=== PATIENT | female | born 1960 | race Caucasian/White ===

== ENCOUNTER 2017-09-12 07:05 | Outpatient (CLI) | payer OTHER ==
[2017-09-12 12:44] LABS: BASOPHILS % (AUTO) 0.8 %; EOSINOPHILS # (AUTO) 0.3 10^3/uL (0.0-0.7); EOSINOPHILS % (AUTO) 6.3 %; HGB - HEMOGLOBIN 13.9 g/dL (12.0-16.0); LYMPHOCYTES # (AUTO) 1.6 10^3/uL (1.5-3.5); MEAN CORPUSCULAR HEMOGLOBIN 31.2 pg (27.0-31.0); MEAN CORPUSCULAR HGB CONC 33.8 g/dL (32.0-36.0); MEAN CORPUSCULAR VOLUME 92.3 fL (81.0-99.0); MEAN PLATELET VOLUME 9.4 fL (7.9-10.8); MONOCYTES # (AUTO) 0.4 10^3/uL (0.0-1.0); MONOCYTES % (AUTO) 9.6 %; NEUTROPHILS # (AUTO) 1.9 10^3/uL (1.5-6.6); NEUTROPHILS % (AUTO) 44.3 %; PLT - PLATELET COUNT 210 10^3/uL (130-450); RED BLOOD COUNT 4.44 10^6/uL (4.20-5.40); WHITE BLOOD COUNT 4.2 x10^3/uL (4.8-10.8)
[2017-09-12 12:51] LABS: ALBUMIN 4.1 g/dL (3.2-5.5); ALBUMIN/GLOBULIN RATIO 1.6 (1.0-2.2); ALKALINE PHOSPHATASE 55 IU/L (42-121); ALT ALANINE AMINOTRANSFERASE 22 IU/L (10-60); AST ASPARTATE AMINOTRANSFERASE 28 IU/L (10-42); BILIRUBIN,TOTAL 1.4 mg/dL (0.2-1.0); BUN - BLOOD UREA NITROGEN 19 mg/dL (6-20); CALCIUM 8.8 mg/dL (8.5-10.3); CARBON DIOXIDE - CO2 26 mmol/L (21-32); CHLORIDE 107 mmol/L (101-111); CHOL/HDL RATIO 2.4 (<4.4); CHOLESTEROL 176 mg/dL; CREATININE 0.7 mg/dL (0.4-1.0); GFR - MDRD 86 (>89); GLUCOSE 99 mg/dL (70-100); HDL CHOLESTEROL 72 mg/dL; LDL CHOLESTEROL,CALCULATED 94 mg/dL; LDL/HDL RATIO 1.3 (<4.4); SODIUM 139 mmol/L (135-145); TOTAL PROTEIN 6.6 g/dL (6.7-8.2); VLDL CHOLESTEROL 10 mg/dL
== END 2017-09-12 07:06 | disposition home or self-care (01) ==
LOC: LAB.WCP 07:05
PROVIDERS: ATTEND Family Medicine
DX: R03.0 Elevated blood-pressure reading, without diagnosis of hypertension (principal); F41.9 Anxiety disorder, unspecified; F90.0 Attention-deficit hyperactivity disorder, predominantly inattentive type
CPT/HCPCS: 36415; 80053; 80061; 83721; 84443; 85025

== ENCOUNTER 2019-02-27 07:31 | Outpatient (CLI) | payer OTHER ==
[2019-02-27 12:46] LABS: BASOPHILS % (AUTO) 0.8 %; EOSINOPHILS # (AUTO) 0.3 10^3/uL (0.0-0.7); EOSINOPHILS % (AUTO) 5.2 %; HGB - HEMOGLOBIN 13.9 g/dL (12.0-16.0); LYMPHOCYTES # (AUTO) 1.6 10^3/uL (1.5-3.5); LYMPHOCYTES % (AUTO) 31.2 %; MEAN CORPUSCULAR HEMOGLOBIN 30.2 pg (27.0-31.0); MEAN CORPUSCULAR HGB CONC 32.9 g/dL (32.0-36.0); MEAN CORPUSCULAR VOLUME 91.7 fL (81.0-99.0); MEAN PLATELET VOLUME 10.9 fL (7.9-10.8); MONOCYTES # (AUTO) 0.5 10^3/uL (0.0-1.0); MONOCYTES % (AUTO) 8.9 %; NEUTROPHILS # (AUTO) 2.8 10^3/uL (1.5-6.6); NEUTROPHILS % (AUTO) 53.7 %; PLT - PLATELET COUNT 223 10^3/uL (130-450); RED CELL DISTRIBUTION WIDTH 12.6 % (12.0-15.0); WHITE BLOOD COUNT 5.2 x10^3/uL (4.8-10.8)
[2019-02-27 13:36] LABS: ALBUMIN 4.3 g/dL (3.2-5.5); ALBUMIN/GLOBULIN RATIO 1.7 (1.0-2.2); ALKALINE PHOSPHATASE 62 IU/L (42-121); ALT ALANINE AMINOTRANSFERASE 17 IU/L (10-60); AST ASPARTATE AMINOTRANSFERASE 19 IU/L (10-42); BILIRUBIN,TOTAL 0.8 mg/dL (0.2-1.0); BUN - BLOOD UREA NITROGEN 17 mg/dL (6-20); CALCIUM 9.4 mg/dL (8.5-10.3); CARBON DIOXIDE - CO2 27 mmol/L (21-32); CHLORIDE 108 mmol/L (101-111); CHOL/HDL RATIO 3.4 (<4.4); CHOLESTEROL 199 mg/dL; CREATININE 0.7 mg/dL (0.4-1.0); GFR - MDRD 85 (>89); GLUCOSE 99 mg/dL (70-100); HDL CHOLESTEROL 58 mg/dL; LDL CHOLESTEROL,CALCULATED 126 mg/dL; LDL/HDL RATIO 2.2 (<4.4); SODIUM 142 mmol/L (135-145); TOTAL PROTEIN 6.9 g/dL (6.7-8.2); VLDL CHOLESTEROL 15 mg/dL
== END 2019-02-27 23:59 | disposition home or self-care (01) ==
LOC: LAB.WCP 07:31
PROVIDERS: ATTEND Family Medicine
DX: Z00.00 Encounter for general adult medical examination without abnormal findings (principal); Z01.84 Encounter for antibody response examination
CPT/HCPCS: 36415; 80053; 80061; 83721; 84443; 85025; 86735; 86762; 86765

== ENCOUNTER 2020-06-05 08:00 | Outpatient (CLI) | payer OTHER | END 2020-06-05 23:59 | disposition home or self-care (01) | LOC: LAB.N 08:00 | PROVIDERS: ATTEND Physician Assistant Medical | DX: N30.00 Acute cystitis without hematuria (principal) | CPT/HCPCS: 87086 ==

== ENCOUNTER 2020-08-31 17:41 | Outpatient (CLI) | payer OTHER | END 2020-08-31 23:59 | disposition home or self-care (01) | LOC: LAB.N 17:41 | PROVIDERS: ATTEND Physician Assistant Medical | DX: J34.89 Other specified disorders of nose and nasal sinuses (principal); Z20.822 Contact with and (suspected) exposure to COVID-19 ==

== ENCOUNTER 2020-09-19 13:34 | Outpatient (CLI) | payer OTHER ==
--- NOTE | 2020-09-19 14:04 | XRAY Report ---
PROCEDURE: Sinus Hernández View INDICATIONS: SINUSITIS TECHNIQUE: 1 views of the sinuses were acquired. COMPARISON: None FINDINGS: Sinuses: There is complete opacification of the left maxillary sinus. The visualized mastoids also ap pear clear. Bones: No suspicious bony lesions. Nasal septum is midline. IMPRESSION: Left maxillary sinus opacification. Reviewed by: Mal Aviles MD on 09/19/2020 1:02 PM [facility] Approved by: Mal Aviles MD on 09/19/2020 1:02 PM LIZ[facility] Station ID: [id number]
== END 2020-09-19 23:59 | disposition home or self-care (01) ==
LOC: DI.N 13:34
PROVIDERS: ATTEND Family Medicine
DX: J32.9 Chronic sinusitis, unspecified (principal); J34.89 Other specified disorders of nose and nasal sinuses

== ENCOUNTER 2020-11-19 16:26 | Outpatient (CLI) | payer OTHER | END 2020-11-19 16:27 | disposition home or self-care (01) | LOC: COV 16:26 | PROVIDERS: ATTEND Family Medicine | DX: Z20.822 Contact with and (suspected) exposure to COVID-19 (principal) ==

== ENCOUNTER 2020-12-13 08:41 | Outpatient (CLI) | payer OTHER ==
[2020-12-13] MEDS ORDERED: IOVERSOL 320 100 ML VIAL IVP ONE ×2 (08:50→09:48)
[2020-12-13 09:13] LABS: CREATININE 0.8 mg/dL (0.4-1.0)
--- NOTE | 2020-12-13 14:10 | CT Report ---
PROCEDURE: MAXILLOFACIAL W/WO INDICATIONS: SUBMANDIBULAR MASS TECHNIQUE: Scanning is performed of the maxillofacial region, both before and following contrast admi nistration. COMPARISON: Correlation is made with sinus plain films, 09/19/2020. FINDINGS: On precontrast imaging, there is a dense stone involving the expected location of the right submandibular duct that measures 9 mm, as on series 5 image 33. The right submandibular gland is hig hly atrophic and highly fatty replaced. The left submandibular gland is unremarkable. On postcontrast imaging, no significant submandibular masses can be seen. The parotid glands demonstrate an unremarkable, symmetric appearance, without stones or masses. The t hyroid is off of the [id number] of this study. The visualized brain is unremarkable, without masses, abnormal enhancement, or hemorrhage. No significant vascular abnormality is detected. No carotid stenosis can be seen. Cervical spine degenerative changes are seen, with at least moderate disc space narrowing at C4-C5 an d C5-C6. On these images, there is moderate mucosal thickening within the left maxillary sinus. Within the sup erior aspect of the right maxillary sinus, there is a mucous retention cyst seen, with partial opacif ication of a right-sided [place] cell. There is constitutional narrowing of both ostiomeatal complexes, with bilateral [place] cells. The par anasal sinuses are otherwise unremarkable. There is a left-sided ginger bullosa and a trivial right-s ided conchal bullosa. There is minimal rightward nasal septal deviation. IMPRESSION: There is a 9 mm right submandibular gland stone, with an associated atrophic/fatty replaced right sub mandibular gland. The left submandibular gland is unremarkable. Paranasal sinus disease is seen, which is worst within the left maxillary sinus. The ostiomeatal complexes are constitutionally narrowed with bilateral [place] cells. The right ostiom eatal complex is further narrowed by a superomedial mucous retention cyst within the right maxillary sinus. Cervical spine degenerative changes can also be seen. Reviewed by: Ike Osborne MD on 12/13/2020 1:09 PM [facility] Approved by: Ike Osborne MD on 12/13/2020 1:09 PM [facility] Station ID: [id number]
== END 2020-12-13 08:42 | disposition home or self-care (01) ==
LOC: LAB 08:41
PROVIDERS: ATTEND Family Medicine
DX: R22.1 Localized swelling, mass and lump, neck (principal); K11.5 Sialolithiasis; J34.1 Cyst and mucocele of nose and nasal sinus; J34.89 Other specified disorders of nose and nasal sinuses; M47.812 Spondylosis without myelopathy or radiculopathy, cervical region
CPT/HCPCS: 36415; 70488; 82565; Q9967

== ENCOUNTER 2021-01-06 08:00 | Outpatient (CLI) | payer OTHER | END 2021-01-06 23:59 | disposition home or self-care (01) | LOC: LAB.N 08:00 | PROVIDERS: ATTEND Physician Assistant | DX: U07.1 COVID-19 (principal) ==

== ENCOUNTER 2021-02-17 10:54 | Outpatient (CLI) | payer OTHER ==
--- NOTE | 2021-02-17 13:51 | XRAY Report ---
PROCEDURE: Chest 2 View X-Ray INDICATIONS: VIRAL SYNDROME TECHNIQUE: 2 view(s) of the chest. COMPARISON: None. FINDINGS: Surgical changes and devices: None. Lungs and pleura: There is blunting of the costophrenic angles bilaterally. Mediastinum: Mediastinal contours are normal. Heart size is normal. Bones and chest wall: No suspicious bony abnormalities. Soft tissues appear unremarkable. IMPRESSION: Costophrenic angle blunting suggestive of trace effusions versus scarring. No consolidations. Reviewed by: Inna Du MD on 02/17/2021 1:50 PM PST Approved by: Inna Du MD on 02/17/2021 1:50 PM [facility] Station ID: [id number]
== END 2021-02-17 23:59 | disposition home or self-care (01) ==
LOC: DI.N 10:54
PROVIDERS: ATTEND Family Medicine
DX: B34.9 Viral infection, unspecified (principal)
CPT/HCPCS: 87275; 87276

== ENCOUNTER 2021-03-16 08:00 | Outpatient (CLI) | payer OTHER ==
[2021-03-16 12:25] LABS: BASOPHILS # (AUTO) 0.1 10^3/uL (0.0-0.1); BASOPHILS % (AUTO) 1.4 %; EOSINOPHILS # (AUTO) 0.3 10^3/uL (0.0-0.7); EOSINOPHILS % (AUTO) 7.9 %; HCT - HEMATOCRIT 41.5 % (37.0-47.0); HGB - HEMOGLOBIN 13.6 g/dL (12.0-16.0); LYMPHOCYTES # (AUTO) 1.6 10^3/uL (1.5-3.5); LYMPHOCYTES % (AUTO) 42.4 %; MEAN CORPUSCULAR HEMOGLOBIN 29.9 pg (27.0-31.0); MEAN CORPUSCULAR HGB CONC 32.8 g/dL (32.0-36.0); MEAN CORPUSCULAR VOLUME 91.2 fL (81.0-99.0); MEAN PLATELET VOLUME 10.4 fL (7.9-10.8); MONOCYTES # (AUTO) 0.3 10^3/uL (0.0-1.0); MONOCYTES % (AUTO) 9.2 %; NEUTROPHILS # (AUTO) 1.4 10^3/uL (1.5-6.6); NEUTROPHILS % (AUTO) 38.8 %; PLT - PLATELET COUNT 248 10^3/uL (130-450); RED BLOOD COUNT 4.55 10^6/uL (4.20-5.40); RED CELL DISTRIBUTION WIDTH 13.2 % (12.0-15.0); WHITE BLOOD COUNT 3.7 x10^3/uL (4.8-10.8)
[2021-03-16 12:28] LABS: BILIRUBIN,URINE NEGATIVE (NEGATIVE); GLUCOSE, URINE (UA) NEGATIVE (NEGATIVE); KETONES,URINE (UA) NEGATIVE (NEGATIVE); LEUKOCYTE ESTERASE, URINE NEGATIVE (NEGATIVE); NITRITE,URINE NEGATIVE (NEGATIVE); OCCULT BLOOD,URINE NEGATIVE (NEGATIVE); PROTEIN,URINE NEGATIVE (NEGATIVE); UROBILINOGEN,URINE 0.2 (NORMAL) E.U./dL (NORMAL)
[2021-03-16 12:30] LABS: CLARITY,URINE CLEAR (CLEAR)
[2021-03-16 12:56] LABS: ALBUMIN 3.6 g/dL (3.2-5.5); ALBUMIN/GLOBULIN RATIO 1.2 (1.0-2.2); ALKALINE PHOSPHATASE 84 IU/L (42-121); ALT ALANINE AMINOTRANSFERASE 19 IU/L (10-60); AST ASPARTATE AMINOTRANSFERASE 20 IU/L (10-42); BILIRUBIN,TOTAL 1.1 mg/dL (0.2-1.0); BUN - BLOOD UREA NITROGEN 13 mg/dL (6-20); CALCIUM 8.9 mg/dL (8.5-10.3); CARBON DIOXIDE - CO2 26 mmol/L (21-32); CHLORIDE 105 mmol/L (101-111); CHOL/HDL RATIO 3.2 (<4.4); CHOLESTEROL 189 mg/dL; CREATININE 0.6 mg/dL (0.4-1.0); GFR - MDRD 101 (>89); GLUCOSE 105 mg/dL (70-100); HDL CHOLESTEROL 60 mg/dL; LDL CHOLESTEROL,CALCULATED 114 mg/dL; LDL/HDL RATIO 1.9 (<4.4); LIPASE 35 U/L (22-51); POTASSIUM 3.7 mmol/L (3.5-5.0); SODIUM 139 mmol/L (135-145); TOTAL PROTEIN 6.5 g/dL (6.7-8.2); TRIGLYCERIDES 74 mg/dL; VLDL CHOLESTEROL 15 mg/dL
[2021-03-16 13:01] LABS: THYROID STIMULATING HORMONE 5.17 uIU/mL (0.34-5.60)
[2021-03-16 14:17] LABS: BACTERIA,URINE None Seen /HPF (None Seen); RBC,URINE None Seen /HPF (0-5); SQUAMOUS EPITHELIAL CELL,UR RARE Squamous (<= Few); WBC,URINE 0-3 /HPF (0-5)
== END 2021-03-16 23:59 | disposition home or self-care (01) ==
LOC: LAB.WCP 08:00
PROVIDERS: ATTEND Internal Medicine
DX: K80.20 Calculus of gallbladder without cholecystitis without obstruction (principal); Z87.448 Personal history of other diseases of urinary system; F41.9 Anxiety disorder, unspecified
CPT/HCPCS: 36415; 80053; 80061; 81001; 83690; 83721; 84443; 85025; 87086

== ENCOUNTER 2021-06-18 08:43 | Outpatient (CLI) | payer OTHER ==
[2021-06-18 13:07] LABS: BASOPHILS # (AUTO) 0.1 10^3/uL (0.0-0.1); BASOPHILS % (AUTO) 1.3 %; EOSINOPHILS # (AUTO) 0.2 10^3/uL (0.0-0.7); EOSINOPHILS % (AUTO) 4.1 %; HCT - HEMATOCRIT 42.7 % (37.0-47.0); HGB - HEMOGLOBIN 14.7 g/dL (12.0-16.0); LYMPHOCYTES # (AUTO) 1.7 10^3/uL (1.5-3.5); LYMPHOCYTES % (AUTO) 31.5 %; MEAN CORPUSCULAR HEMOGLOBIN 30.8 pg (27.0-31.0); MEAN CORPUSCULAR HGB CONC 34.4 g/dL (32.0-36.0); MEAN CORPUSCULAR VOLUME 89.3 fL (81.0-99.0); MONOCYTES # (AUTO) 0.5 10^3/uL (0.0-1.0); MONOCYTES % (AUTO) 9.5 %; NEUTROPHILS # (AUTO) 2.9 10^3/uL (1.5-6.6); NEUTROPHILS % (AUTO) 53.2 %; PLT - PLATELET COUNT 249 10^3/uL (130-450); RED BLOOD COUNT 4.78 10^6/uL (4.20-5.40); RED CELL DISTRIBUTION WIDTH 12.2 % (12.0-15.0); WHITE BLOOD COUNT 5.4 x10^3/uL (4.8-10.8)
[2021-06-18 13:17] LABS: ALBUMIN 4.4 g/dL (3.2-5.5); ALBUMIN/GLOBULIN RATIO 1.7 (1.0-2.2); ALKALINE PHOSPHATASE 63 IU/L (42-121); ALT ALANINE AMINOTRANSFERASE 19 IU/L (10-60); AST ASPARTATE AMINOTRANSFERASE 21 IU/L (10-42); BILIRUBIN,TOTAL 1.1 mg/dL (0.2-1.0); BUN - BLOOD UREA NITROGEN 18 mg/dL (6-20); CALCIUM 9.1 mg/dL (8.5-10.3); CARBON DIOXIDE - CO2 28 mmol/L (21-32); CHLORIDE 104 mmol/L (101-111); CHOL/HDL RATIO 2.7 (<4.4); CHOLESTEROL 194 mg/dL; CREATININE 0.8 mg/dL (0.4-1.0); GFR - MDRD 72 (>89); GLUCOSE 99 mg/dL (70-100); HDL CHOLESTEROL 73 mg/dL; LDL CHOLESTEROL,CALCULATED 105 mg/dL; LDL/HDL RATIO 1.4 (<4.4); POTASSIUM 3.7 mmol/L (3.5-5.0); SODIUM 141 mmol/L (135-145); TRIGLYCERIDES 78 mg/dL; VLDL CHOLESTEROL 16 mg/dL
[2021-06-18 13:24] LABS: THYROID STIMULATING HORMONE 3.62 uIU/mL (0.34-5.60)
== END 2021-06-18 08:44 | disposition home or self-care (01) ==
LOC: LAB.N 08:43
PROVIDERS: ATTEND Family Medicine
DX: I10 Essential (primary) hypertension (principal); K80.20 Calculus of gallbladder without cholecystitis without obstruction; R22.1 Localized swelling, mass and lump, neck; N95.1 Menopausal and female climacteric states
CPT/HCPCS: 36415; 80053; 80061; 83721; 84443; 85025

== ENCOUNTER 2021-09-07 14:55 | Outpatient (CLI) | payer OTHER | END 2021-09-07 14:56 | disposition home or self-care (01) | LOC: DI 14:55 | PROVIDERS: ATTEND Family Medicine | DX: R01.1 Cardiac murmur, unspecified (principal) | CPT/HCPCS: 93306 ==

== ENCOUNTER 2022-04-06 07:06 | Outpatient (CLI) | payer OTHER ==
[2022-04-06 12:23] LABS: BASOPHILS % (AUTO) 0.8 %; EOSINOPHILS # (AUTO) 0.3 10^3/uL (0.0-0.7); EOSINOPHILS % (AUTO) 5.7 %; HGB - HEMOGLOBIN 14.9 g/dL (12.0-16.0); LYMPHOCYTES % (AUTO) 37.5 %; MEAN CORPUSCULAR HGB CONC 33.1 g/dL (32.0-36.0); MEAN CORPUSCULAR VOLUME 90.7 fL (81.0-99.0); MEAN PLATELET VOLUME 10.6 fL (7.9-10.8); MONOCYTES # (AUTO) 0.5 10^3/uL (0.0-1.0); MONOCYTES % (AUTO) 8.8 %; NEUTROPHILS # (AUTO) 2.5 10^3/uL (1.5-6.6); PLT - PLATELET COUNT 255 10^3/uL (130-450); RED BLOOD COUNT 4.96 10^6/uL (4.20-5.40); RED CELL DISTRIBUTION WIDTH 12.6 % (12.0-15.0); WHITE BLOOD COUNT 5.2 x10^3/uL (4.8-10.8)
[2022-04-06 12:34] LABS: ALBUMIN 4.2 g/dL (3.2-5.5); ALBUMIN/GLOBULIN RATIO 1.4 (1.0-2.2); ALKALINE PHOSPHATASE 60 IU/L (42-121); ALT ALANINE AMINOTRANSFERASE 18 IU/L (10-60); AST ASPARTATE AMINOTRANSFERASE 22 IU/L (10-42); BILIRUBIN,TOTAL 1.2 mg/dL (0.2-1.0); BUN - BLOOD UREA NITROGEN 19 mg/dL (6-20); CALCIUM 9.3 mg/dL (8.5-10.3); CARBON DIOXIDE - CO2 28 mmol/L (21-32); CHLORIDE 105 mmol/L (101-111); CHOLESTEROL 186 mg/dL; CREATININE 0.8 mg/dL (0.4-1.0); GFR - MDRD 72 (>89); GLUCOSE 114 mg/dL (70-100); HDL CHOLESTEROL 63 mg/dL; LDL CHOLESTEROL,CALCULATED 104 mg/dL; LDL/HDL RATIO 1.7 (<4.4); POTASSIUM 3.4 mmol/L (3.5-5.0); SODIUM 141 mmol/L (135-145); TOTAL PROTEIN 7.1 g/dL (6.7-8.2); TRIGLYCERIDES 97 mg/dL; VLDL CHOLESTEROL 19 mg/dL
[2022-04-06 12:46] LABS: THYROID STIMULATING HORMONE 4.24 uIU/mL (0.34-5.60)
[2022-04-06 12:51] LABS: ESTIMATED AVERAGE GLUCOSE 105 mg/dL (70-100); HEMOGLOBIN A1c% 5.3 % (4.27-6.07)
== END 2022-04-06 07:07 | disposition home or self-care (01) ==
LOC: LAB.N 07:06
PROVIDERS: ATTEND Nurse Practitioner Family
DX: Z00.00 Encounter for general adult medical examination without abnormal findings (principal); E66.9 Obesity, unspecified
CPT/HCPCS: 36415; 80053; 80061; 83036; 83721; 84443; 85025

== ENCOUNTER 2023-03-17 07:08 | Outpatient (CLI) | payer OTHER ==
[2023-03-17 12:08] LABS: ESTIMATED AVERAGE GLUCOSE 94 mg/dL (70-100); HEMOGLOBIN A1c% 4.9 % (4.27-6.07)
[2023-03-17 12:09] LABS: BASOPHILS # (AUTO) 0.1 10^3/uL (0.0-0.1); EOSINOPHILS # (AUTO) 0.3 10^3/uL (0.0-0.7); EOSINOPHILS % (AUTO) 4.3 %; HGB - HEMOGLOBIN 14.1 g/dL (12.0-16.0); LYMPHOCYTES # (AUTO) 1.7 10^3/uL (1.5-3.5); LYMPHOCYTES % (AUTO) 29.2 %; MEAN CORPUSCULAR HEMOGLOBIN 31.4 pg (27.0-31.0); MEAN CORPUSCULAR HGB CONC 33.6 g/dL (32.0-36.0); MEAN CORPUSCULAR VOLUME 93.5 fL (81.0-99.0); MEAN PLATELET VOLUME 10.5 fL (7.9-10.8); MONOCYTES # (AUTO) 0.6 10^3/uL (0.0-1.0); MONOCYTES % (AUTO) 10.4 %; NEUTROPHILS # (AUTO) 3.2 10^3/uL (1.5-6.6); NEUTROPHILS % (AUTO) 54.9 %; PLT - PLATELET COUNT 233 10^3/uL (130-450); RED BLOOD COUNT 4.49 10^6/uL (4.20-5.40); RED CELL DISTRIBUTION WIDTH 12.6 % (12.0-15.0); WHITE BLOOD COUNT 5.8 x10^3/uL (4.8-10.8)
[2023-03-17 12:19] LABS: ALBUMIN 4.1 g/dL (3.2-5.5); ALBUMIN/GLOBULIN RATIO 1.7 (1.0-2.2); BILIRUBIN,TOTAL 1.2 mg/dL (0.2-1.0); CALCIUM 9.2 mg/dL (8.5-10.3); CREATININE 0.7 mg/dL (0.6-1.3); POTASSIUM 3.7 mmol/L (3.5-4.5); TOTAL PROTEIN 6.5 g/dL (6.4-8.9)
[2023-03-17 12:34] LABS: THYROID STIMULATING HORMONE 4.07 uIU/mL (0.34-5.60)
== END 2023-03-17 07:09 | disposition home or self-care (01) ==
LOC: LAB.N 07:08
PROVIDERS: ATTEND Nurse Practitioner Family
DX: I10 Essential (primary) hypertension (principal); I49.9 Cardiac arrhythmia, unspecified; E66.9 Obesity, unspecified
CPT/HCPCS: 36415; 80053; 83036; 84443; 85025